=== PATIENT | male | born 1980 | race Hispanic/Latino ===

== ENCOUNTER → 2017-07-20 | Outpatient (CLI) | payer OTHER | LOC: RAH 09:52 | PROVIDERS: ATTEND General Practice | DX: R13.10 Dysphagia, unspecified (principal) | CPT/HCPCS: 74230; 92611 ==

== ENCOUNTER → 2018-12-20 | Outpatient (CLI) | payer OTHER | END | disposition home or self-care (01) | LOC: RAH 09:48 | PROVIDERS: ATTEND Emergency Medicine Emergency Medical Services | DX: K21.9 Gastro-esophageal reflux disease without esophagitis (principal); F17.290 Nicotine dependence, other tobacco product, uncomplicated | CPT/HCPCS: 74240 ==